=== PATIENT | female | born 1950 | race Caucasian/White ===

== ENCOUNTER → 2019-11-11 12:00 | Outpatient (CLI) | payer MEDICARE, OTHER, SELFPAY ==
--- NOTE | ~2019-11-11 | MR_ITS ---
EXAMINATION: MR shoulder RT wo con DATE: 11/11/2019 12:56 INDICATION: Right rotator cuff tear presenting with right shoulder pain post falling injury in July 25 TECHNIQUE: Magnetic resonance imaging (MRI) of the right shoulder was performed without intravenous c ontrast. Sequences included axial PD-weighted FS FSE, coronal oblique PD-weighted FS FSE, coronal obl ique T2-weighted FS FSE, sagittal PD-weighted FS FSE, and sagittal T1-weighted SE. COMPARISON: None. FINDINGS: Coracoacromial arch: The acromion undersurface is curved in morphology (type II) with prominent anterior subacromial spur at the acromial side of the otherwise normal coracoacromial ligament. There is remodeling of the unde rsurface of the acromion which now corresponds in contour of the apex of the humeral head with which it now articulates. Moderate acromioclavicular osteoarthritis with subarticular cystic changes and pr ominent inferiorly directed osteophytes at the lateral clavicle. Rotator cuff: Complete full-thickness tears of the supraspinatus and infraspinatus tendons which is likely chronic with severe fatty atrophy of both muscle bellies. There is a small amount of heterotopic ossification along the retracted supraspinatus tear margin positioned at the level of the neck of the glenoid. Th ere is mild tendinopathy without discrete tear at the distal teres minor tendon. There is a tear of t he cephalad two thirds of the lesser tuberosity footplate of the subscapularis tendon. There is mild tendinopathy of the intact caudal third of the tendon. The bursal side of the more cephalad subscapul oj tendon which remain contiguous with the intact transverse humeral ligament. Mild fatty atrophy o f the teres minor and cephalad portion of the subscapularis. Biceps tendon, glenoid labrum and glenohumeral cartilage: Long head biceps tendon is subluxed across the medial rim of the intertubercular groove and the denud ed portion of the lesser tuberosity footplate of the subscapularis tendon. Moderate tendinopathy with out discrete tear of the intra-articular long head biceps tendon. There is partial thickness cartilag e loss with smooth chondral surface along the cephalad third of the glenoid. The glenoid labrum remai ns intact. There is additional partial thickness cartilage loss with chondral surface regularity most prominent along the anteroinferior aspect of the humeral head and at the apex and superomedial aspec t of the humeral head. Small to moderate size marginal osteophytes are present about the humeral head . Fluid: Small glenohumeral joint effusion which extends to the full-thickness rotator cuff tear into the suba cromial/subdeltoid bursa. No loose osteochondral bodies. Bones: Mild cephalad subluxation of the humeral head which now articulates with the undersurface of the acro mion resulting from the full-thickness rotator cuff tear. No fracture or pathologic marrow replacing process. Mild cystic and hypertrophic changes at the greater tuberosity likely related to chronic rot ator cuff disease. IMPRESSION: 1. Complete full-thickness tear of the supraspinatus and infraspinatus tendons and cephalad two third s of the subscapularis tendon, likely chronic given the severe fatty atrophy of the supraspinatus and infraspinatus muscle bellies. 2. Moderate glenohumeral and acromioclavicular osteoarthritis. 3. Moderate tendinopathy without discrete tear of the intra-articular long head biceps tendon which i s subluxed across the scapularis tear defect at the lesser tuberosity. Reviewed, dictated and finalized at location A. IMPRESSION: 1. Complete full-thickness tear of the supraspinatus and infraspinatus tendons and cephalad two thirds of the subscapularis tendon, likely chronic given t
== END ==
PROVIDERS: Visit Provider Specialist
DX: M25.511 Pain in right shoulder (principal); S46.011A Strain of muscle(s) and tendon(s) of the rotator cuff of right shoulder, initial encounter; M19.011 Primary osteoarthritis, right shoulder; M75.21 Bicipital tendinitis, right shoulder
CPT/HCPCS: 73221

== ENCOUNTER → 2023-03-05 14:57 | Outpatient (CLI) | payer MEDICARE, OTHER, SELFPAY ==
--- NOTE | ~2023-03-05 | XR_ITS ---
XR lumbar spine min 4V DATE: 03/05/2023 15:29 INDICATION: Back pain TECHNIQUE: AP, lateral, coned lateral lumbosacral and bilateral oblique views COMPARISON: None FINDINGS: Diffuse osteopenia. There is 16 degrees dextroscoliosis measured from L1 to L4. There is prominent degenerative changes apophyseal joints, especially in the mid and lower lumbar spi ne, with associated grade 1 anterolisthesis at L3-4 and L4-5 and to a slight extent at L5-S1. There is moderate degenerative disc disease at L1-2 and severe degenerative disc disease at L3-4 and L4-5. L5-S1 interspace is well preserved. No fracture or bone destruction is detected. The included lower thoracic and lumbar pedicles are inta ct. No spondylolysis. The sacroiliac joints appear normal. Status post cholecystectomy. IMPRESSION: Grade 1 anterolisthesis at L3-4, L4-5 and L5-S1 Multilevel degenerative disc disease, severe at L3-4 and L4-5 Levoscoliosis Osteopenia Reviewed, dictated and finalized at location L. [employer]
== END ==
PROVIDERS: PCP Chiropractor
DX: M85.88 Other specified disorders of bone density and structure, other site (principal); M51.36 Other intervertebral disc degeneration, lumbar region
CPT/HCPCS: 72110